=== PATIENT | male | born 1960 | race Caucasian/White ===

== ENCOUNTER 2017-04-20 09:28 | Inpatient (IN) | payer OTHER ==
[~2017-04-20] VITALS: Ht 182.9 cm; Wt 79.8 kg
--- NOTE | ~2017-04-20 | ER ---
PATIENT'S NAME: ROSSANIBAL Gaines [facility] AGE: 57 Y [address] ROOM: [place] [address] LOCATION: GPCU ADMIT DATE: 04/20/2017 ER/Outpatient Report DISCHARGE DATE: FAMILY PHYSICIAN: PHYSICIAN, NO ATTENDING PHYSICIAN: SHAVON REBOLLAR TIME OF ARRIVAL: 0928 hours. TIME SEEN: 0928 hours. IDENTIFICATION: A 57-year-old male. CHIEF COMPLAINT: Chest pain. HISTORY OF PRESENT ILLNESS: The patient developed chest pain 30 minutes prior to arrival after riding his bike. The patient has substernal chest pain. No radiation associated with diaphoresis and nausea. He denies shortness of breath and no lightheadedness. The patient does have a history of known coronary artery disease and previous stenting in 2008. ALLERGIES: TO ZOCOR AND LIPITOR. CURRENT MEDICATIONS: 1. Protonix 40 mg b.i.d. 2. Clinoril 200 mg b.i.d. 3. Pepcid 20 mg b.i.d. 4. Aspirin 81 mg q.i.d. 5. Fish oil 5000 daily. 6. Vitamin D3 2000 international units daily. PAST MEDICAL HISTORY: Arthritis, coronary artery disease status post previous [place] and stent, gastroesophageal reflux disease. PAST SURGICAL HISTORY: Bilateral hernia and cardiac stents. SOCIAL HISTORY: The patient lives here in [place]. Tobacco use, he quit in 1999. Alcohol use, PATIENT'S NAME: ANIBAL ROSS [facility] AGE: 57 Y [address] ROOM: [place] [address] LOCATION: GPCU ADMIT DATE: 04/20/2017 ER/Outpatient Report DISCHARGE DATE: FAMILY PHYSICIAN: PHYSICIAN, NO ATTENDING PHYSICIAN: SHAVON REBOLLAR denies. Drug use, denies. REVIEW OF SYSTEMS: All systems reviewed and negative other than what is noted in the HPI. PHYSICAL EXAMINATION: VITAL SIGNS: Weight 82 kg. Blood pressure 162/90, pulse 75, respirations 20, temperature 96.5, and saturations 98%. GENERAL: A 57-year-old male, in moderate distress, and slightly diaphoretic, rating his pain 6/10. HEENT: Head: Normocephalic, atraumatic. Ears: TMs translucent both ears. Nose: Mucosa pink, no lesions. Mouth: No lesions. Pharynx benign. NECK: Supple. No lymphadenopathy. No thyromegaly. LUNGS: Clear to auscultation. HEART: Regular rate and rhythm. ABDOMEN: Soft, nondistended, nontender. SKIN: Diaphoretic. No lesions or rashes noted. NEUROLOGICAL: Patient is alert and oriented x4. Cranial nerves 2 through 12 grossly intact. Motor strength 5/5 throughout. Sensation is intact to light touch. EXTREMITIES: No lower extremity edema. No calf tenderness. DIAGNOSTIC DATA: EKG obtained at 0930 hours: Normal sinus rhythm at 69 beats per minute. No acute ST elevation or depression. No prior EKG available at this time for comparison. Sodium 145, potassium 3.6, chloride 109, CO2 of 27, BUN 18, creatinine 1.1, blood sugar 92. Liver enzymes normal. Magnesium 1.9. CPK 130, CK-MB 5.0, troponin I less than 0.040. Chest x-ray, 1 view: No acute process. Pending Radiology over-read. ProBNP 123. CBC normal. INR 0.93. EMERGENCY ROOM COURSE: The patient was given 4 baby aspirin. An IV was initiated. His pain relieved on its own and he was pain free. He remained hemodynamically stable. IMPRESSION: 1. Unstable angina. 2. Arthritis. 3. Known coronary artery disease. PLAN: PATIENT'S NAME: ANIBAL ROSS [facility] AGE: 57 Y [address] ROOM: [place] [address] LOCATION: GPCU ADMIT DATE: 04/20/2017 ER/Outpatient Report DISCHARGE DATE: FAMILY PHYSICIAN: PHYSICIAN, NO ATTENDING PHYSICIAN: SHAVON REBOLLAR For admission per Dr. Rebollar; Dr. Nolan was also notified, and evaluated the patient in the emergency room. KRYS LUCERO MD CAR/modl /[id number] d: 04/20/17 1753 t: 04/23/17 1639, OUTPATIENT REPORT
--- NOTE | ~2017-04-20 | OR ---
PATIENT'S NAME: ANIBAL ROSS [facility] AGE: 57 Y [address] ROOM: [place] [address] LOCATION: GPCU ADMIT DATE: 04/20/2017 OR/Procedure Report DISCHARGE DATE: 04/23/2017 FAMILY PHYSICIAN: PHYSICIAN, NO ATTENDING PHYSICIAN: Susy Rebollar SURGEON: Leonora Peña MD INSULATION PACKER: DATE OF PROCEDURE: 04/22/2017 CT CORONARY ANGIOGRAPHY A patient of Dr. Nicole. 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 The patient underwent his coronary artery calcium score followed by intravenous injection of 100 mL of Isovue. Coronary angiography was performed utilizing standardized protocol. The data set was downloaded to 3D workstation and the images were manipulated to evaluate the coronary anatomy. The coronary calcium score is as follows: 1. Left main 41. 2. RCA 142. 3. LAD difficult to assess because of the presence of a long stent. 4. Left circumflex 0, total 183. CORONARY ANGIOGRAPHY: The left main and right coronary artery both arise from a common ostium. The left main vessel courses posterior to the aortic root and runs around the aortic root to get to the front of the AV groove where it divides into LAD and left circumflex vessels. The left main vessel has about 20% lesion in its midportion. This course is benign course. The long stented segment in the LAD and probably very distal part of the left main, which jails the ostium of the circumflex is probably patent. Distally, there are 2 diagonals and LAD appears to be without any significant disease. The left circumflex is a relatively small vessel and it gives off 3 small obtuse marginals. The dominant right coronary artery is relatively large and has mild diffuse disease. The PDA and posterolateral branch both are fairly large as well. PATIENT'S NAME: ANIBAL ROSS [facility] AGE: 57 Y [address] ROOM: [place] [address] LOCATION: GPCU ADMIT DATE: 04/20/2017 OR/Procedure Report DISCHARGE DATE: 04/23/2017 FAMILY PHYSICIAN: PHYSICIAN, NO ATTENDING PHYSICIAN: Khalid,Jain A CONCLUSIONS: 1. 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 2. Stent in the LAD. 3. Mostly mild coronary artery disease in the rest of the vessels. 4. The calcium score is 183. MD MALCOLM GUERRERO/madi /[id number] d: 04/28/17 0108 t: 04/30/17 1753, OPERATIVE SUMMARY
--- NOTE | ~2017-04-20 | ECHO ---
Transthoracic Echocardiography Report (TTE) Demographics Patient Name ANIBAL ROSS Date of Study 04/20/2017 Patient Number [id number] Visit Number [id number] Date of 1960 Room Number G6308 Gender Male Number Age 57 year(s) Referring Smooth [place] Senior Instrumentation Engineer Ann Zamora RVT Physician Physician Interpreting Corey Wagner [employer] Shop Mechanic Physician Andrei CRAFT Supervising Ordering Donato Rebollar MD, MD/MLP Physician Nurse Stress Tracer Clerk Conclusions Contractility Score Summary Normal Left Ventricular contractility was noted. Summary The estimated left ventricular ejection fraction is 55-60%. Mild concentric left ventricular hypertrophy. Diastolic assessment reveals Grade II pseudonormal diastolic function . Mild mitral regurgitation by color Doppler. The aortic valve is mildly sclerotic. Trivial tricuspid regurgitation by color Doppler. Procedure Type of Study TTE procedure:2D Echocardiogram. Procedure Date Date: 04/20/2017 Start: 03:12 PM Study Location: Inpatient Portable Technical Quality: Adequate visualization Indications:Chest pain. Appropriate Use Criteria: 9 Patient Status: Routine HR: 70 bpm BP: 135/81 mmHg M-Mode/2D Measurements LV Diastolic Dimension: 4.67 cm LV Systolic Dimension: 2.4 cm LV Septum Diastolic: 1.16 cm LV PW Diastolic: 1.2 cm AO Root Dimension: 2.5 cm Cardiac Output: 3.56 l/min AV Cusp Separation: 2 cm RV Diastolic Dimension: 3.1 cm LVOT: 2 cm LVOT VTI: 16.2 cm RV Base: 2.25 cm LV Stroke volume: 50.87 ml RV Length: 6.93 cm TAPSE: 1.84 cm TDI-S': 14.4 cm/s Doppler Measurements AV Peak Velocity: 1.2 m/s MV Peak E-Wave: 1.06 m/s AV Peak Gradient: 5.76 mmHg MV Peak A-Wave: 0.91 m/s AV Mean Gradient: 3 mmHg MV E/A Ratio: 1.16 LVOT Peak Velocity: 0.84 m/s TR Velocity:2.09 m/s PV Peak Velocity: 1.27 m/s TR Gradient:17.47 mmHg PV Peak Gradient: 6.45 mmHg Estimated RAP:10 mmHg Estimated PASP: 27.47 mmHg Estimated RVSP: 27 mmHg A' Septal Velocity: 0.13 m/s E' Septal Velocity: 0.07 m/s A' Lateral Velocity: 0.14 m/s E' Lateral Velocity: 0.08 m/s Findings Left Ventricle Mild concentric left ventricular hypertrophy. Diastolic assessment reveals Grade II pseudonormal diastolic function . Right Ventricle Normal right ventricle structure and function. Left Atrium Normal left atrial size. Right Atrium IVC measures 1.43 cm with partial inspiratory collapse. Mitral Valve Mild mitral regurgitation by color Doppler. Borderline prolapse of the mitral valve. Aortic Valve The aortic valve is mildly sclerotic. Tricuspid Valve Trivial tricuspid regurgitation by color Doppler. Pulmonic Valve Normal pulmonic valve structure and function. Pericardial Effusion No evidence of pericardial effusion. Miscellaneous Visualized portions of the aortic root and ascending aorta appear normal in size. Contractility Score LV regional wall motion:(0-Non visualized 1-Normal 2-Hypokinesis 3-Akinesis 4-Dyskinesis 5-Aneurysm) Signature dtt: Vahid Nicole dtd: 04/20/17 0592 Physician Self Edit
--- NOTE | ~2017-04-20 | CON ---
PATIENT'S NAME: ANIBAL ROSS [facility] AGE: 57 Y [address] ROOM: [place] [address] LOCATION: GPCU ADMIT DATE: 04/20/2017 Consultation DISCHARGE DATE: FAMILY PHYSICIAN: PHYSICIAN, NO ATTENDING PHYSICIAN: SHAVON HEREDIA DATE OF CONSULTATION: 04/20/2017 REFERRING PHYSICIAN: Vahid Nicole MD REASON FOR CARDIOLOGY CONSULT: Chest pain. HISTORY OF PRESENT ILLNESS: This is a 57-year-old male with a history of a previous ST elevated myocardial infarction in the high lateral leads. He at that time received a drug-eluting stent to his LAD and that was in 2008. He presents today to the emergency department with complaints of substernal chest pain. He describes the pain as diffuse and unfamiliar to his previous myocardial infarction pain and there is no notation of radiation of the pain. The patient states the pain began after a bike ride of some length and it resolved in the emergency department with 325 mg of aspirin. At this time, he also has complaints of heartburn which he states is chronic. He has no complaints of presyncope or syncope, palpitations, nausea, or vomiting. At the time of this consult, he is resting comfortably in bed and is pain free. PAST MEDICAL HISTORY: 1. Coronary artery disease. 2. Chronic GERD. 3. Arthritis. 4. 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 5. Hypertension. 6. Hypercholesterolemia. PAST SURGICAL HISTORY: 1. Coronary artery stenting. 2. Skin cancer removal from his lip in 2005. 3. Bilateral inguinal hernia repairs. FAMILY HISTORY: No known family medical history. SOCIAL HISTORY: The patient is a former cigarette smoker. He smoked 2 packs of cigarettes per day for a total of 20 years. He quit smoking in 1999. He denies alcohol or illicit drug use. PATIENT'S NAME: ANIBAL ROSS [facility] AGE: 57 Y [address] ROOM: [place] [address] LOCATION: GPCU ADMIT DATE: 04/20/2017 Consultation DISCHARGE DATE: FAMILY PHYSICIAN: PHYSICIAN, NO ATTENDING PHYSICIAN: SHAVON HEREDIA CURRENT MEDICATIONS: 1. Heparin IV per ACS protocol. 2. Nitroglycerin IV as needed for chest pain. 3. Crestor 10 mg p.o. daily in the evening. 4. Fish oil 2000 mg p.o. daily in the morning. 5. Fish oil 1000 mg p.o. 3 times daily at noon 1800 and midnight. 6. Pepcid 20 mg p.o. twice daily. 7. Protonix 40 mg p.o. twice daily. 8. Vitamin D 5000 units p.o. 3 times daily. MEDICATION ALLERGIES: 1. Zocor causing back pain. 2. Lipitor causing soreness in his legs. REVIEW OF SYSTEMS: Pertinent positive review of systems as listed in the HPI. All other review of systems evaluated and negative. PHYSICAL EXAMINATION: VITAL SIGNS: Temperature 98.3, pulse 64, respirations 15, blood pressure 158/84, and O2 saturation 95% on room air. The patient weighs 80.1 kg. SKIN: [place], warm, and dry. EYES: Sclerae clear. No xanthelasmas. ENT: Oral mucosa is pink and moist. No jugular venous distention. No carotid bruits. CHEST: Respirations are even and unlabored. LUNGS: Clear to auscultation. HEART: Regular rate and rhythm. Normal S1 and S2. Does have the presence of an S4. ABDOMEN: Soft and nontender. MUSCULOSKELETAL: Gait is normal. EXTREMITIES: Peripheral pulses palpable. No clubbing, cyanosis, or edema. PSYCH: Alert and oriented. Mood and affect are appropriate. IMPRESSION AND PLAN: Per Dr. Nicole. 1. Substernal chest pain with relief noted by aspirin. He states he has had yearly follow up with his primary care provider in the [place], and we will attempt to get those records. We will trend cardiac enzymes every 6 hours x3 values to rule out myocardial infarction. If his enzymes continued to be negative, we will proceed with a treadmill nuclear stress test. If his enzymes elevate, we will proceed with a selective coronary angiography for full evaluation of coronary anatomy. We will also check an echocardiogram to fully evaluate ejection fraction as well as look for PATIENT'S NAME: ANIBAL ROSS [facility] AGE: 57 Y [address] ROOM: [place] [address] LOCATION: [facility] ADMIT DATE: 04/20/2017 Consultation DISCHARGE DATE: FAMILY PHYSICIAN: PHYSICIAN, NO ATTENDING PHYSICIAN: SHAVON HEREDIA wall motion and valvular abnormalities. 2. History of coronary artery disease and ST elevated myocardial infarction with drug-eluting stent to the LAD in 2008. No recent evaluation by secondary spanish teacher has been noted. 3. Chronic gastroesophageal reflux disease. 4. We will continue to monitor, evaluate, and treat as appropriate. Thank you for this consult. Thank you for allowing [facility] to interact in the care of this patient. YUSUF LIVINGSTON APRN FOR ANNALEE-MD BENNY CERDA/madi /[id number] d: 04/21/17 1802 t: 04/30/17 0913, CONSULTATION REPORT
--- NOTE | ~2017-04-20 | HP ---
PATIENT'S NAME: ANIBAL ROSS [facility] AGE: 57 Y [address] ROOM: [place] [id number] LOCATION: GPCU ADMIT DATE: 04/20/2017 History & Physical DISCHARGE DATE: FAMILY PHYSICIAN: PHYSICIAN, NO ATTENDING PHYSICIAN: SHAVON HEREDIA DATE OF SERVICE: CHIEF COMPLAINT: Chest pain. HISTORY OF PRESENT ILLNESS: A 57-year-old gentleman with a past medical history of coronary artery disease with multiple stents to LAD back in 2008, presented to the emergency department with chest pain which is located in the center of the chest, dull and pressure like, started after the patient did some bicycling, was 7/10, no radiation, alleviated by aspirin given in the emergency department, stayed there for a good 40 to 45 minutes, associated with some dizziness and diaphoresis, but no shortness of breath. He denied any leg swelling, PND, or orthopnea. On further inquiry, he denied any headache, any trouble swallowing, any cough, any shortness of breath, any sputum production, abdominal pain, burning on urination, constipation, or diarrhea. REVIEW OF SYSTEMS: All other systems reviewed and were negative except those mentioned in the HPI. ALLERGIES: THE PATIENT IS ALLERGIC TO BETA JAYDEN WELL STATINS, BOTH GIVE BACK PAIN WELL LEG SORES. PAST MEDICAL HISTORY: 1. Coronary artery disease with multiple stents done to LAD in the past in 2008. Had multiple stress tests in various locations, last one done being 2 years ago, per the patient, at the [facility]. 2. History of arthritis. 3. Gastroesophageal reflux disease. 4. History of skin cancer of the right upper lip, status post excision and flap. 5. Bilateral hernia repairs. FAMILY HISTORY: The patient is adopted and does not know his biological parents. SOCIAL HISTORY: PATIENT'S NAME: ANIBAL ROSS [facility] AGE: 57 Y [address] ROOM: [address] [place] [id number] LOCATION: GPCU ADMIT DATE: 04/20/2017 History & Physical DISCHARGE DATE: FAMILY PHYSICIAN: PHYSICIAN, NO ATTENDING PHYSICIAN: SHAVON HEREDIA He is . A , worked in the [employer]. Quit smoking in 1993. No recreational drug abuse. MEDICATIONS: MAR PHYSICAL EXAMINATION: VITAL SIGNS: 150/74, 62, saturating 95% on room air, 16. GENERAL: No acute distress. Alert and oriented x3. HEENT: Head: Atraumatic, normocephalic. Eyes: Nonicteric. No pallor. Oropharynx: Moist mucous membranes. CARDIOVASCULAR: S1 and S2. No murmurs, gallops, or rubs. LUNGS: Clear to auscultation bilaterally. ABDOMEN: Soft, nontender, and nondistended. Bowel sounds are present. EXTREMITIES: No clubbing, cyanosis, or edema. PSYCHIATRIC: Normal affect, mood, and speech. NEUROLOGIC: Cranial nerves 2 through 12 are intact. No motor or sensory deficits. MUSCULOSKELETAL: No muscle tenderness or swelling noted. ENDOCRINE: No thyromegaly or cushingoid features noted. LYMPHATIC: No lymphadenopathy noted. LABORATORY AND DIAGNOSTIC DATA: EKG done in the emergency department did not reveal any acute ST-T wave changes. Normal sinus rhythm. A chest x-ray was done which did not show any acute intrathoracic changes, infiltrate, or atelectasis. Lab work done in the emergency department was negative for troponin. CBC was unremarkable. Potassium of 3.6. First set of CK-MB was high at 5 with the reference range 0.0 to 3.6. ProBNP was 123. ASSESSMENT AND PLAN: 1. Unstable angina, acute coronary syndrome. 2. History of coronary artery disease, status post PCI to LAD in 2008. 3. Arthritis. 4. Hypokalemia. We are going to admit this patient to inpatient. Four baby aspirin have already been given. The patient is allergic to beta blockers as well as metoprolol. We will hold those ones. We are going to start heparin drip. Nitroglycerin drip if the pain recurs. Echocardiography will be done. Cardiology consultation will be obtained. Serial EKG monitoring if any chest pain. Replace potassium. Deep venous thrombosis prophylaxis: On heparin drip. Diet: Cardiac diet, n.p.o. midnight. Activity: Bedrest with bathroom privileges. Continuous telemonitoring. Further management in terms of stress test or cath will depend on his clinical progress in the hospital. PATIENT'S NAME: ANIBAL ROSS [facility] AGE: 57 Y [address] ROOM: [place] [address] [facility] ADMIT DATE: 04/20/2017 History & Physical DISCHARGE DATE: FAMILY PHYSICIAN: PHYSICIANAMRANI ATTENDING PHYSICIAN: SHAVON HEREDIA MD HEMA/modl /[id number] D: [id number] T: [id number] HISTORY & PHYSICAL
--- NOTE | ~2017-04-20 | DS ---
PATIENT'S NAME: ANIBAL ROSS [facility] AGE: 57 Y [address] ROOM: [place] [address] LOCATION: GPCU ADMIT DATE: 04/20/2017 Discharge Summary DISCHARGE DATE: 04/23/2017 FAMILY PHYSICIAN: ARMANI ABDI ATTENDING PHYSICIAN: Susy Rebollar PRINCIPAL DIAGNOSES: 1. Okd-IT-efhwwxe elevation myocardial infarction. 2. History of coronary artery disease, status post stenting in 2008. 3. Hyperlipidemia. 4. Gastroesophageal reflux disease. BRIEF HOSPITAL COURSE: Please refer to the admitting H and P for detailed history on initial presentation. The patient was admitted for a workup of acute coronary syndrome and elevation in troponin and noted to be in NSTEMI. The patient was subsequently started on cardiac meds and had an early cardiac cath for evaluation. 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 Upon recommendation from Cardiology, a CT of the coronaries was included. At this point, it is being reviewed by Cardiology. Options include possible bypass surgery at this point. The patient will follow up with Dr. Nicole in 2 weeks for evaluation and plan moving forward. PHYSICAL EXAMINATION: GENERAL: The patient was awake, alert, and oriented x3, in no acute distress. CHEST: Clear to auscultation bilaterally. HEART: S1 and S2. Regular rate and rhythm. ABDOMEN: Soft, nontender, and nondistended. EXTREMITIES: Without edema. DISPOSITION: Home. FOLLOWUP: With Cardiology, Dr. Nicole, in 2 weeks. Less than 30 minutes were spent in discharge planning and facilitating. MD LINDA GRACE/madi PATIENT'S NAME: ANIBAL ROSS [facility] AGE: 57 Y [address] ROOM: [place] [address] LOCATION: GPCU ADMIT DATE: 04/20/2017 Discharge Summary DISCHARGE DATE: 04/23/2017 FAMILY PHYSICIAN: ARMANI ABDI ATTENDING PHYSICIAN: Susy Rebollar /[id number] d: 04/25/17 0413 t: 05/15/17 1521, DISCHARGE SUMMARY
--- NOTE | ~2017-04-20 | CATH ---
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 Patent large stented area in LAD 3. Moderate CAD progression since last cath. Diagnostic Recommendations 1. Lower cholesterol 2. CTA to establish course of Left Main between pulmonary artery and aorta followed by possible CABG. Procedure Description The patient was brought to the diagnostic cardiac catheterization-EP laboratory in the fasting, non-sedated state. Informed consent was obtained in the written and verbal form after the risks and benefits were explained. The patient had no further questions and agreed to proceed. The planned puncture-incision site(s) were shaved and prepped with ChloraPrep and draped in the usual sterile manner. Conscious sedation, supplemental oxygen, and pain control medications were delivered by a registered nurse under physician guidance. Surface ECG rhythm, blood pressure measurement, and pulse oximetry were monitored throughout the procedure. Arterial access. The access site was infiltrated with lidocaine. The vessel was entered with the Seldinger technique. A sheath was advanced into the vessel and used for catheter placement. Selective left coronary angiography. A catheter was advanced into the left coronary vessel ostium under Fluoroscopic guidance. Contrast was injected by hand. Images were obtained in multiple projections. Selective right coronary angiography. A catheter was advanced into the right coronary vessel ostium under fluoroscopic guidance. Contrast was injected by hand. Images were obtained in multiple projections. Left heart catheterization. A catheter was advanced across the aortic valve to the left ventricle under fluoroscopic guidance. Resting hemodynamics were obtained. Arterial artery hemostasis was achieved. The patient was transferred to a regular nursing floor via cart accompanied by a nurse. The patient left the laboratory in stable condition. Diagnostic Cath Status: Urgent Procedure Procedure Type Diagnostic procedure:Angiography:, Coronary Angios w/[facility] Indications: NSTEMI and Chest pain. The procedure was explained in detail to the patient. Risks, complications and alternative treatments were reviewed. Written consent was obtained. Medications Reviewed with Patient prior to Procedure. Angiographic Findings Dominance: Right Cardiac Arteries and Lesion Findings LMCA: Ectopic from Right Cusp - 40% stenosis. Lesion on LMCA: Proximal subsection.40% stenosis . LAD: Patent proximal + mid stents Diag. is small, patentThere is a previous stent on Mid LAD Mid subsection. There is a previous stent on Mid LAD Distal subsection. There is a previous stent on Mid LAD Proximal subsection. LCx: OM is small, patent Lesion on Prox CX: Ostial.50% stenosis . RCA: luminal irregularities Lesion on 1st RPL: Proximal subsection.60% stenosis . Lesion on R PDA: Proximal subsection.20% stenosis . Coronary Tree Procedure Data Procedure Date Date: 04/21/2017Start: 10:00 AMEnd: 10:30 AM Entry Locations - Retrograde Percutaneous access was performed through the Right Radial artery (Primary location). A 6 Fr sheath was inserted. Hemostasis was successfully obtained using Mechanical Compression. Closure Comments: 14cc's of air in R-band applied by [facility] Procedure Medications Order and Administration + + +-------+-------+ !Time !Medication !Dosage !Route ! + + +-------+-------+ !04/21/2017 !Versed !1 mg !I.V. ! !09:54 AM ! ! ! ! + + +-------+-------+ !04/21/2017 !Fentanyl !50 mcg !I.V. ! !09:54 AM ! ! ! ! + + +-------+-------+ !04/21/2017 !PAE Radial Cocktail: Heparin 5000 units, ! !I.A. ! !10:02 AM !Nitroglycerin 200mcg, Verapamil 3 mg ! ! ! ! !(ACC_3) ! ! ! + + +-------+-------+ !04/21/2017 !Oxygen !2 l/min!NC ! !10:06 AM ! ! ! ! + + +-------+-------+ Devices Used - A6 Fr. BS JR 4 Diag. Catheterwas used for:Right coronary angiography. - A6 Fr. MPA2 Diag. Catheterwas used for:Right coronary angiography.Unable to cannulate the vessel. - A6 Fr. BS AR1 Diag. Catheterwas used for:Right coronary angiography. Contrast Material - Isovue 405756 ml Fluoroscopy Time: Diagnostic: 7:06 minutes. Total: 7:06 minutes. Fluoroscopy Dose: Diagnostic: 1207 mGy. Total: 1207 mGy. Estimated Blood Loss: 10 ml. Medical History Performed Procedures and Imaging Results - Echocardiographywas performed on 04/20/2017.(EF 60%). Allergies - Other:(simvastatin). - Other:(atorvastatin). Risk Factors The patient risk factors include:prior PCI on 10/15/2008;dyslipidemia, former tobacco use and prior MD . Admission Data Admission Date: 04/20/2017 Admission Time: 11:20 AM Admit Source: Emergency department Insurance Payors: [facility]. Admission Medications + +------+-------+ + + + + !Medication !Dosage!Times !Last !Last !Administered !Comments ! ! ! !Per Day!Delivery !Delivery ! ! ! ! ! ! !Date !Time ! ! ! + +------+-------+ + + + + !Aspirin ! ! ! ! !Yes ! ! !(any) ! ! ! ! ! ! ! + +------+-------+ + + + + !Non-Statin ! ! ! ! !Yes ! ! !(any) ! ! ! ! ! ! ! + +------+-------+ + + + + Clinical Evaluation Leading to Procedure Diagnosed on 04/21/2017 09:00 AM. - The patient's CAD presentation was assessed as: Non-STEMI.The symptom onset was first noted on 04/20/2017 11:20 AM(time was estimated). - The patient's anginal syndrome during the past two weeks was assessed as: Class IV according to the [place] Cardiovascular [employer] Classification System (CCS). Snapshots Hemodynamics Condition: Rest O2 Consumption: Estimated: 244.74Heart Rate: 79 bpm Pressures (mmHg) +-----+ + !Site !Pressure ! +-----+ + !LV !149/-11 ,0 ! +-----+ + !LV !145/-10 ,-1 ! +-----+ + !AO !130/78 (100) ! +-----+ + !LV !147/-11 ,-1 ! +-----+ + !AO !126/79 (99) ! +-----+ + Valve Gradients and Areas + +---------+---------+---------+ +---------+ + !Valve !Peak !Mean !Area !Index !Flow !Source ! + +---------+---------+---------+ +---------+ + !Aortic !17 !10 ! ! ! ! ! + +---------+---------+---------+ +---------+ + !Aortic !17 !10 ! ! ! ! ! + +---------+---------+---------+ +---------+ + Shunts Oxygen Values O2 Capacity 197.2 O2 Consumption 244.74 Discharge Data Discharge Date: 04/23/2017 Hospital Status: Inpatient Signatures dtt: Vahid Nicole dtd: 04/21/17 [facility] [place][note 3] Physician Self Edit
[2017-04-20 09:50] LABS: BASOPHIL # 0.1 K/uL (0.0-0.2); BASOPHIL % 0.8 %; EOSINOPHIL # 0.1 K/uL (0.0-0.5); EOSINOPHIL % 1.8 %; HEMATOCRIT 42.2 % (37.0-53.0); HEMOGLOBIN 14.5 g/dL (12.0-17.0); IMMATURE GRANULOCYTE % 0.4 %; LYMPHOCYTE # 1.9 K/uL (0.8-4.0); LYMPHOCYTE % 23.9 %; MCH 31.5 pg (27.0-34.0); MCHC 34.4 gm/dL (32.0-36.5); MCV 91.7 fl (83.0-98.0); MONOCYTE # 0.6 K/uL (0.0-1.0); MONOCYTE % 7.4 %; MPV 10.2 fl (9.4-12.4); NEUTROPHIL # (ANC) 5.2 K/uL (1.4-9.0); NEUTROPHIL % 65.7 %; NRBC % 0 /100WBC (0-0.00); PLATELET COUNT 236 K/uL (150-450); RDW-CV 13.2 % (11.9-14.6); WBC 7.9 K/uL (4.0-11.0)
[2017-04-20 09:56] LABS: INR - (THERAPEUTIC) 0.93 (0.92-1.07); PROTIME 9.8 SECONDS (9.8-11.4); PTT 24 SECONDS (25-32)
[2017-04-20 10:07] LABS: ALBUMIN 3.6 gm/dL (3.5-5.0); ALK PHOS 58 IU/L (33-138); ALT 32 IU/L (12-78); ANION GAP 12.6 (10.0-19.0); AST 30 IU/L (10-40); BLOOD UREA NITROGEN 18 mg/dL (6-24); CALCIUM 9.2 mg/dL (8.5-10.5); CHLORIDE 109 mMol/L (96-110); CO2 27 mMol/L (22-32); CPK 130 IU/L (35-332); CREATININE 1.1 mg/dL (0.6-1.3); ESTIMATED GFR (MDRD EQUATION) > 60; MAGNESIUM 1.9 mg/dL (1.8-2.6); POTASSIUM 3.6 mMol/L (3.7-5.1); SODIUM 145 mMol/L (135-145); TOTAL BILIRUBIN 0.8 mg/dL (0.0-1.5); TOTAL PROTEIN 7.5 g/dL (6.0-8.4)
[2017-04-20] MEDS ORDERED: CLINORIL200 MG PO (12:30)
[2017-04-20] MEDS ORDERED: PROTONIX40 MG PO (12:30)
[2017-04-20] MEDS ORDERED: ASPIRIN LO-DOSE81 MG PO (12:31)
[2017-04-20] MEDS ORDERED: PEPCID20 MG PO (12:31)
[2017-04-20] MEDS ORDERED: FISH OIL 1,0001 EACH PO (12:32)
[2017-04-20] MEDS ORDERED: FISH OIL 1,0001 EAC1 PO (12:32)
[2017-04-20] MEDS ORDERED: COD LIVER OIL1 EACH PO (12:33)
[2017-04-20] MEDS ORDERED: VITAMIN D35000 UNI1 PO (12:33)
[2017-04-20] MEDS ORDERED: MYLICON OR GAS-80 MG PO (12:43)
[2017-04-22 04:40] LABS: ANION GAP 10.4 (10.0-19.0); BLOOD UREA NITROGEN 11 mg/dL (6-24); CALCIUM 8.7 mg/dL (8.5-10.5); CHLORIDE 111 mMol/L (96-110); CO2 25 mMol/L (22-32); CREATININE 0.8 mg/dL (0.6-1.3); ESTIMATED GFR (MDRD EQUATION) > 60; POTASSIUM 3.4 mMol/L (3.7-5.1); SODIUM 143 mMol/L (135-145)
[2017-04-23] MEDS ORDERED: ZETIA10 MG PO (18:40)
[2017-04-23] MEDS ORDERED: CRESTOR10 MG PO (18:42)
[2017-04-23] MEDS ORDERED: COLACE100 MG PO (18:44)
[2017-04-23] MEDS ORDERED: MIRALAX17 GM PO (18:46)
[2017-04-23] MEDS ORDERED: LOPRESSOR25 MG PO (18:48)
== END 2017-04-23 20:05 | disposition disaster alternative care site (69) | DRG 282 ==
LOC: GMED 09:28 → GPCU 11:20
PROVIDERS: Family Medicine; Internal Medicine Cardiovascular Disease; ADMIT Internal Medicine
PROC: 4A023N7 Measurement of Cardiac Sampling and Pressure, Left Heart, Percutaneous Approach (ICD-10-PCS; principal; 2017-04-21)
PROC: B2111ZZ Fluoroscopy of Multiple Coronary Arteries using Low Osmolar Contrast (ICD-10-PCS; principal; 2017-04-21)
PROC: B2151ZZ Fluoroscopy of Left Heart using Low Osmolar Contrast (ICD-10-PCS; principal; 2017-04-21)
DX: I21.4 Non-ST elevation (NSTEMI) myocardial infarction (principal); E78.5 Hyperlipidemia, unspecified; I25.110 Atherosclerotic heart disease of native coronary artery with unstable angina pectoris; K21.9 Gastro-esophageal reflux disease without esophagitis; E87.6 Hypokalemia; M19.90 Unspecified osteoarthritis, unspecified site; E78.00 Pure hypercholesterolemia, unspecified; I25.2 Old myocardial infarction; Z95.5 Presence of coronary angioplasty implant and graft; Z88.8 Allergy status to other drugs, medicaments and biological substances; Z87.891 Personal history of nicotine dependence
CPT/HCPCS: C1894; J1644; J1650; J2250; J3010; J7030